=== PATIENT | female | born 1960 | race African-American/Black ===

== ENCOUNTER 2017-02-20 10:23 | Emergency (ER) | payer OTHER ==
[~2017-02-20] VITALS: Ht 162.6 cm; Wt 74.8 kg
[2017-02-20 10:46] VITALS: BP 148/90
[2017-02-20 11:46] LABS: BASOPHILS % (AUTO) 0.4 % (0.0-2.0); EOSINOPHILS % (AUTO) 0.6 % (0.0-3.0); MEAN CORPUSCULAR HEMOGLOBIN 28.6 PG (27.0-31.0); MEAN CORPUSCULAR HGB CONC 31.7 G/DL (32.0-36.0); MEAN CORPUSCULAR VOLUME 90 FL (80-99); MEAN PLATELET VOLUME 6.7 FL (6.5-10.1); MONOCYTES % (AUTO) 5.3 % (1.0-10.0); NEUTROPHILS % (AUTO) 79.7 % (45.0-75.0); PLATELET COUNT 259 K/UL (150-450); RED BLOOD COUNT 4.91 M/UL (4.20-5.40); RED CELL DISTRIBUTION WIDTH 13.9 % (11.6-14.8); WHITE BLOOD COUNT 8.1 K/UL (4.8-10.8)
[2017-02-20 11:53] LABS: INR 0.9 (0.9-1.1); PROTHROMBIN TIME 9.6 SEC (9.30-11.50)
[2017-02-20 12:12] LABS: ANION GAP 7 mmol/L (5-15); CALCIUM 9.8 MG/DL (8.5-10.1); CARBON DIOXIDE 30 MMOL/L (21-32); CHLORIDE 102 MMOL/L (98-107); GLOMERULAR FILTRATION RATE > 60 mL/min (>60); POTASSIUM 3.5 MMOL/L (3.5-5.1); SODIUM 139 MMOL/L (136-145)
[2017-02-20 12:26] LABS: ALANINE AMINOTRANSFERASE 20 U/L (12-78); ASPARTATE AMINO TRANSFERASE 23 U/L (15-37); TOTAL PROTEIN 8.1 G/DL (6.4-8.2)
[2017-02-20 12:34] VITALS: BP 166/90
--- NOTE | 2017-02-20 14:09 | Emergency Room Report ---
History of Present Illness General Chief Complaint: Hypertension Source: Patient Present Illness HPI This patient states that she was being seen for an upper respiratory infection and was told she had elevated blood pressure and a fast heart rate. She went saw her primary care physician and was placed on a beta raphael. She states that she occasionally does feel like her heart rate is going fast. Overall though she doesn't notice. She denies chest pain or shortness of breath. She denies cough or congestion. She denies abdominal pain. She states that she does not a history of colon cancer that was resected and she underwent radiation in 2013. She states that she has had no further issues since then. She has no other complaints. Allergies: Coded Allergies: PENICILLINS (Verified Allergy, Unknown, 02/20/17) Uncoded Allergies: ADHESIVES (Allergy, Unknown, 02/20/17) SHELLFISH (Allergy, Unknown, 02/20/17) Patient History Past Medical History: see triage record, HTN, other - colorectal ca Social History: Denies: smoking, alcohol use, drug use Last Menstrual Period: menopause Reviewed Nursing Documentation: PMH: Agreed, PSxH: Agreed Nursing Documentation-PMH Past Medical History: No History, Except For Hx Hypertension: Yes Hx Cancer: Yes - colorectal CA Review of Systems All Other Systems: negative except mentioned in HPI Physical Exam Vital Signs Date Time Temp Pulse Resp B/P (MAP) Pulse Ox O2 Delivery O2 Flow Rate FiO2 02/20/17 10:33 98.4 139 18 148/90 99 Room Air Sp02 EP Interpretation: reviewed, normal General Appearance: no apparent distress, alert, GCS 15, non-toxic Head: normocephalic, atraumatic Eyes: bilateral eye normal inspection, bilateral eye PERRL ENT: hearing grossly normal, normal pharynx, no angioedema, normal voice Neck: full range of motion, supple/symm/no masses Respiratory: chest non-tender, lungs clear, normal breath sounds, no respiratory distress, no retraction, no accessory muscle use, speaking full sentences Cardiovascular #1: no edema, tachycardia Gastrointestinal: normal bowel sounds, non tender, soft, non-distended, no guarding, no rebound Rectal: deferred Musculoskeletal: back normal, gait/station normal, normal range of motion, non- tender Neurologic: alert, oriented x3, responsive, motor strength/tone normal, sensory intact, speech normal Psychiatric: judgement/insight normal, memory normal, mood/affect normal, no suicidal/homicidal ideation Skin: normal color, no rash, warm/dry, well hydrated Medical Decision Making Diagnostic Impression: Primary Impression: Hypertension Additional Impression: Tachycardia ER Course This patient presents with hypertension and tachycardia of uncertain etiology. Given the patient's history of colon cancer, I flushed obtain a CT of the chest to rule out PE. CT of the chest showed no evidence of PE. There was an incidental finding of a thyroid nodule that the patient was educated to have followed up. There was also some hepatic cyst this and the patient states is baseline for her. The patient is not tolerating the Toprol. Likely this patient has an appropriate tachycardia. Unfortunately, treatment is difficult in this subset of tachycardia patient and is poorly responsive to oral rate control medications. I was at the patient on verapamil. She is instructed to followup closely with her primary care physician and obtain a consultation to autocad designer. At this time, I did not identify an emergency medical condition. The patient's given close return precautions and followup instructions. Laboratory Tests Test 02/20/17 11:25 White Blood Count 8.1 K/UL (4.8-10.8) Red Blood Count 4.91 M/UL (4.20-5.40) Hemoglobin 14.0 G/DL (12.0-16.0) Hematocrit 44.3 % (37.0-47.0) Mean Corpuscular Volume 90 FL (80-99) Mean Corpuscular Hemoglobin 28.6 PG (27.0-31.0) Mean Corpuscular Hemoglobin Concent 31.7 G/DL (32.0-36.0) L Red Cell Distribution Width 13.9 % (11.6-14.8) Platelet Count 259 K/UL (150-450) Mean Platelet Volume 6.7 FL (6.5-10.1) Neutrophils (%) (Auto) 79.7 % (45.0-75.0) H Lymphocytes (%) (Auto) 14.0 % (20.0-45.0) L Monocytes (%) (Auto) 5.3 % (1.0-10.0) Eosinophils (%) (Auto) 0.6 % (0.0-3.0) Basophils (%) (Auto) 0.4 % (0.0-2.0) Prothrombin Time 9.6 SEC (9.30-11.50) Prothrombin Time INR 0.9 (0.9-1.1) PTT 25 SEC (23-33) Sodium Level 139 MMOL/L (136-145) Potassium Level 3.5 MMOL/L (3.5-5.1) Chloride Level 102 MMOL/L (98-107) Carbon Dioxide Level 30 MMOL/L (21-32) Anion Gap 7 mmol/L (5-15) Blood Urea Nitrogen 14 mg/dL (7-18) Creatinine 1.0 MG/DL (0.55-1.30) Estimate Glomerular Filtration Rate > 60 mL/min (>60) Glucose Level 134 MG/DL (74-106) H Calcium Level 9.8 MG/DL (8.5-10.1) Total Bilirubin 0.3 MG/DL (0.2-1.0) Aspartate Amino Transferase (AST) 23 U/L (15-37) Alanine Aminotransferase (ALT) 20 U/L (12-78) Alkaline Phosphatase 75 U/L (46-116) Total Creatine Kinase 201 U/L (26-308) Creatine Kinase MB 1.0 NG/ML (0.0-3.6) Creatine Kinase MB Relative Index 0.4 Troponin I 0.000 ng/mL (0.000-0.056) Total Protein 8.1 G/DL (6.4-8.2) Albumin 4.0 G/DL (3.4-5.0) Globulin 4.1 g/dL Albumin/Globulin Ratio 1.0 (1.0-2.7) EKG Diagnostic Results Rate: tachycardiac Rhythm: other - ST ST Segments: no acute changes Other Impression ST Rhythm Strip Diag. Results EP Interpretation: yes Rate: 130's Rhythm: no PVC's, no ectopy Other Impression 130's CT/MRI/US Diagnostic Results CT/MRI/US Diagnostic Results : Imaging Test Ordered: CT Chest/abd/pelvis Impression No acute findings. No PE. See official report. Last Vital Signs Date Time Temp Pulse Resp B/P (MAP) Pulse Ox O2 Delivery O2 Flow Rate FiO2 02/20/17 12:34 123 18 166/90 99 Room Air 02/20/17 10:33 98.4 Status: improved Disposition: HOME, SELF-CARE Condition: Improved Referrals: NON PHYSICIAN (PCP) Patient Instructions: High Blood Pressure (Hypertension) COLIANNO,WESTLEY M D.O. Feb 20, 2017 14:09
--- NOTE | 2017-02-20 14:11 | Diagnostic Imaging Report ---
ndication: Reason For Exam: SOB Technique: IV administration nonionic contrast. Spiral acquisitions obtained from the lung bases to the lung apices. Multiplanar and 3-D reconstructions were generated. Total dose length product 937.12 mGycm. CTDIvol(s) 30.87 mGy. Dose reduction achieved using automated exposure control Comparison: none Findings: The pulmonary arteries are well opacified. No intraluminal filling defects or other findings to suggest acute pulmonary embolus demonstrated. No evidence of thoracic aortic aneurysm or dissection. Common origin of the right brachiocephalic left common carotid artery, otherwise classic aortic arch branching anatomy. Normal caliber pulmonary arteries. No evidence of periventricular dilatation. Normal heart size. The lungs are clear except for minimal atelectasis in the inferior lingula. Pleural spaces are clear. No pericardial effusion. No mediastinal or hilar mass or adenopathy demonstrated. There is a 7 mm nodule in the left thyroid lower pole. No axillary or chest wall mass or adenopathy. Bones demonstrate minimal degenerative spondylosis changes Included upper abdominal anatomy demonstrates multiple hepatic cysts as well as multiple sub-5 mm low-attenuation lesions which are too small to characterize. Impression: Negative for evidence of acute pulmonary embolus or other acute thoracic pathology Minimal inferior lingular atelectasis or scarring Subcentimeter left lower pole thyroid nodule. No further follow-up necessary Incidental finding multiple hepatic cysts. Multiple sub-5 mm hepatic lesions statistically most likely represent benign simple cysts or bile hamartomas. No further follow-up necessary The CT scanner at [facility] is accredited by the [employer] and the scans are performed using protocols designed to limit radiation exposure to as low as reasonably achievable to attain images of sufficient resolution adequate for diagnostic evaluation.
[2017-02-20 14:29] VITALS: BP 158/86
[2017-02-20] MEDS ORDERED: VERAPAMIL ER120 MG PO (14:39)
[2017-02-20] MEDS ORDERED: Verapamil 80mg tab ORAL ONE (14:45)
[2017-02-20 14:49] VITALS: BP 145/99
[2017-02-20] MEDS ORDERED: LISINOPRIL-HCT1 EAC2 ORAL (15:15)
--- NOTE | 2017-02-23 00:27 | Cardiology Report ---
APPROVED REPORT EKG Measurement Heart [id number] Sinus tachycardia Cannot rule out Anterior infarct, age undetermined Abnormal ECG
== END 2017-02-20 15:20 | disposition home or self-care (01) ==
LOC: EMR 11:13
DX: I10 Essential (primary) hypertension (principal); R00.0 Tachycardia, unspecified; Z85.038 Personal history of other malignant neoplasm of large intestine; Z88.0 Allergy status to penicillin; Z91.013 Allergy to seafood; Z91.048 Other nonmedicinal substance allergy status
CPT/HCPCS: 36415; 71275; 80053; 82383; 82550; 82553; 84484; 85025; 85610; 85730; 93005; 96360; 99284; Q9967